=== PATIENT | female | born 1970 | race American Indian/Alaskan Native ===

== ENCOUNTER 2018-05-07 11:40 | Emergency (ER) | payer BC ==
[2018-05-07 12:10] VITALS: RESP 18; TEMP 98.4; O2SAT 100; BMI 34.9
[2018-05-07] MEDS ORDERED: Sodium Chloride 0.9% 1,000 ML IV STA (13:01)
--- NOTE | 2018-05-07 13:04 | ED PDOC ---
Arrival/HPI - General Chief Complaint: Pain, Chronic Time Seen by Provider: 05/07/18 13:00 Historian: Patient - History of Present Illness Narrative History of Present Illness (Text): 05/07/18 13:03 Patient is a 47 year old female whose past medical history includes arthritis, and sickle cell disease, who presents to the emergency department with her complaining of bilateral upper and lower extremity joint pain. Patient reports that her arthralgia started 3 days ago, which she has been treating with extra strength Tylenol and Motrin 600mg. The medications only provided intermittent relief before the pain would return. Of note the last time she took Tylenol and Motrin was last night. She mentions that her joint pain is worse in her left knee and radiates to her thigh. Currently, her joint isn't as severe. She notes that she had left sided chest pain, and denies any rash in the area. Patient denies currently having any chest pain. She has had similar joint pain in the past. Patient denies fevers, chills, cough, shortness of breath, chest pain, dyspnea on exertion, abdominal pain, nausea, vomiting, diarrhea, urinary/bowel changes, headache, dizziness, or any other complaint. Time/Duration: < week Symptom Onset: Sudden Symptom Course: Unchanged Context: Home Past Medical History - Provider Review Nursing Documentation Reviewed: Yes - Infectious Disease Hx of Infectious Diseases: None - Cardiac Hx Cardiac Disorders: No - Pulmonary Hx Respiratory Disorders: No - Neurological Hx Seizures: Yes - HEENT Hx HEENT Disorder: No - Renal Hx Renal Disorder: No - Endocrine/Metabolic Hx Endocrine Disorders: No - Hematological/Oncological Other/Comment: sickle cell - Integumentary Hx Dermatological Disorder: No - Musculoskeletal/Rheumatological Hx Musculoskeletal Disorders: No Hx Falls: No - Gastrointestinal Hx Gastrointestinal Disorders: No - Genitourinary/Gynecological Hx Genitourinary Disorders: No Other/Comment: c section - Psychiatric Hx Psychophysiologic Disorder: No Hx Substance Use: No - Surgical History Other/Comment: c section - Anesthesia Hx Anesthesia: Yes Hx Anesthesia Reactions: No Hx Malignant Hyperthermia: No Family/Social History - Physician Review Nursing Documentation Reviewed: Yes Family/Social History: No Known Family HX Smoking Status: Never Smoked Hx Alcohol Use: No Hx Substance Use: No Allergies/Home Meds Allergies/Adverse Reactions: Allergies shrimp Allergy (Verified 05/07/18 12:24) ANAPHYLAXIS Review of Systems - Physician Review All systems were reviewed & negative as marked: Yes - Review of Systems Constitutional: absent: Fevers, Night Sweats Respiratory: absent: SOB, Cough Cardiovascular: absent: Chest Pain, RICH Gastrointestinal: absent: Abdominal Pain, Diarrhea, Nausea, Vomiting Genitourinary Female: absent: Urine Output Changes Musculoskeletal: Arthralgias Skin: absent: Rash Neurological: absent: Headache, Dizziness Physical Exam Vital Signs Reviewed: Yes Vital Signs Temp Pulse Resp BP Pulse Ox 05/07/18 16:15 65 18 116/65 100 05/07/18 15:08 69 18 118/61 100 05/07/18 13:36 75 18 121/65 100 05/07/18 12:09 98.4 F 78 18 119/66 100 Temperature: Afebrile Blood Pressure: Normal Pulse: Regular Respiratory Rate: Normal Appearance: Positive for: Well-Appearing Mental Status: Positive for: Alert and Oriented X 3 - Systems Exam Head: Present: Atraumatic, Normocephalic Pupils: Present: PERRL Extroacular Muscles: Present: EOMI Conjunctiva: Present: Normal Mouth: Present: Moist Mucous Membranes Neck: Present: Normal Range of Motion Respiratory/Chest: Present: Clear to Auscultation, Good Air Exchange. No: Respiratory Distress, Accessory Muscle Use Cardiovascular: Present: Regular Rate and Rhythm, Normal S1, S2. No: Murmurs Abdomen: No: Tenderness, Distention, Peritoneal Signs Back: Present: Normal Inspection Upper Extremity: Present: Normal Inspection. No: Cyanosis, Edema Lower Extremity: Present: Normal Inspection. No: Edema Neurological: Present: GCS=15, CN II-XII Intact, Speech Normal Skin: Present: Warm, Dry, Normal Color. No: Rashes Psychiatric: Present: Alert, Oriented x 3, Normal Insight, Normal Concentration Medical Decision Making ED Course and Treatment: 05/07/18 13:03 Impression: Patient is a 47 year old female who is complaining of upper and lower extremity joint pain, which started 3 days ago. Plan: -- Labs -- Blood work -- Tylenol -- Toradol -- Chest X-ray -- IV fluids -- Reassess and disposition Prior Visits: Notes and results from previous visits were reviewed. Progress Notes: 05/07/18 16:09 patient feel much better and ready to go home. - Lab Interpretations Lab Results: 05/07/18 13:50 05/07/18 13:50 Lab Results 05/07/18 13:50: Sodium 143, Potassium 4.9, Chloride 107, Carbon Dioxide 28, Anion Gap 12, BUN 19, Creatinine 0.9, Est GFR ( Amer) > 60, Est GFR (Non- Af Amer) > 60, Random Glucose 97, Calcium 9.2, Total Bilirubin 0.7, AST 25, ALT 24, Alkaline Phosphatase 134 H, Total Protein 7.4, Albumin 4.2, Globulin 3.2, Albumin/Globulin Ratio 1.3 05/07/18 13:50: WBC 13.5 H D, RBC 4.81, Hgb 12.3, Hct 35.5 L, MCV 73.8 L, MCH 25.6, MCHC 34.6, RDW 17.4 H, Plt Count 278, MPV 8.4, Gran % 78.2 H, Lymph % ( Auto) 12.2 L, [place] % (Auto) 8.6 H, Eos % (Auto) 0.9 L, Baso % (Auto) 0.1, Gran # 10.54 H, Lymph # (Auto) 1.7, [place] # (Auto) 1.2 H, Eos # (Auto) 0.1, Baso # ( Auto) 0.01, Neutrophils % (Manual) 81 H, Lymphocytes % (Manual) 12 L, Monocytes % (Manual) 6, Eosinophils % (Manual) 1, Large Platelets Present, Polychromasia Slight, Hypochromasia Slight, Poikilocytosis (manual 2+, Anisocytosis (manual) 1 +, Microcytosis (manual) 1+, Target Cells 1+, Retic Count 3.48 H I have reviewed the lab results: Yes - RAD Interpretation Narrative RAD Interpretations (Text): 05/07/18 15:32 Chest X-ray: Creator : Venancio Aranda MD IMPRESSION: No active disease. Radiology Orders: 05/07/18 13:37 CXR [CHEST TWO VIEWS (PA/LAT)] [RAD] Stat Skin Former: Radiologist - EKG Interpretation EKG Interpretation (Text): 05/07/18 15:01 1443: nsr at 74 bpm, nml qrs, nml axis, no acute sttw abn Interpreted by ED Physician: Yes Type: 12 lead EKG - Medication Orders Current Medication Orders: Discontinued Medications Acetaminophen (Tylenol 325mg Tab) 975 mg PO STAT STA Stop: 05/07/18 13:02 Last Admin: 05/07/18 13:54 Dose: 975 mg MAR Pain/Vitals Document 05/07/18 13:54 HI (Rec: 05/07/18 13:54 [id number] Pain Reassessment Is This A Pain ReAssessment? No Sleep Is patient sleeping during reassessment? No Presence of Pain Presence of Pain Yes Location Pain Location Body Site Generalized Sodium Chloride (Sodium Chloride 0.9%) 1,000 mls @ 999 mls/hr IV .Q1H1M STA Stop: 05/07/18 14:01 Last Admin: 05/07/18 13:55 Dose: 999 mls/hr eMAR Start Stop Document 05/07/18 13:55 HI (Rec: 05/07/18 13:55 [id number] Intravenous Solution Start Date 05/07/18 Start Time 13:55 Ketorolac Tromethamine (Toradol) 30 mg IVP STAT STA Stop: 05/07/18 13:02 Last Admin: 05/07/18 13:54 Dose: 30 mg MAR Pain Assessment Document 05/07/18 13:54 HI (Rec: 05/07/18 13:54 [id number] Pain Reassessment Is this a pain reassessment? No Sleep Is patient sleeping during reassessment? No Presence of Pain Presence of Pain Yes Location Pain Location Body Site Generalized Description Description Sharp IVP Administration Document 05/07/18 13:54 HI (Rec: 05/07/18 13:54 [id number] Charges for Administration # of IVP Administrations 1 - Scribe Statement The provider has reviewed the documentation as recorded by the Radibshaun Paul Provider Scribe Attestation: All medical record entries made by the Scribe were at my direction and personally dictated by me. I have reviewed the chart and agree that the record accurately reflects my personal performance of the history, physical exam, medical decision making, and the department course for this patient. I have also personally directed, reviewed, and agree with the discharge instructions and disposition. Disposition/Present on Arrival - Present on Arrival Any Indicators Present on Arrival: No History of DVT/PE: No History of Uncontrolled Diabetes: No Urinary Catheter: No History of Decub. Ulcer: No History Surgical Site Infection Following: None - Disposition Have Diagnosis and Disposition been Completed?: Yes Diagnosis: Sickle cell anemia with pain Disposition: HOME/ ROUTINE Disposition Time: 16:10 Patient Plan: Discharge Patient Problems: Current Active Problems Problem Status Onset Sickle cell anemia with pain Acute Condition: IMPROVED Discharge Instructions (ExitCare): Sickle Cell Disease Additional Instructions: CHRISTINE RUIZ, thank you for letting us take care of you today. Your provider was Dr. Ricky Villalobos and you were treated for sickle cell pain. The emergency medical care you received today was directed at your acute symptoms. If you were prescribed any medication, please fill it and take as directed. It may take several days for your symptoms to resolve. Return to the Emergency Department if your symptoms worsen, do not improve, or if you have any other problems. Please contact your doctor or call one of the physicians/clinics you have been referred to that are listed on the Patient Visit Information form that is included in your discharge packet. Bring any paperwork you were given at discharge with you along with any medications you are taking to your follow up visit. Our treatment cannot replace ongoing medical care by a primary care provider outside of the emergency department. Thank you for allowing the [facility] team to be part of your care today. If you had an X-Ray or CT scan: A Radiologist will review the ED reading if any change in treatment is needed we will contact you. If you had a blood, urine, or wound culture: It will take several days for the results, if any change in treatment is needed we will contact you. If you had an STI test: It will take 48 hours for the results. Please call after 1 week if you have not heard back. Prescriptions: Ketorolac Tromethamine [Toradol] 10 mg PO Q6H 5 Days #20 tab Referrals: Amee Kebede MD [Primary Care Provider] - Follow up with primary Forms: [employer] (Mal[place]ian)
[2018-05-07 14:10] LABS: BASO # 0.01 K/mm3 (0.0-2.0); BASO % 0.1 % (0.0-3.0); EOS # 0.1 (0.0-0.7); EOS % 0.9 % (1.5-5.0); GRAN # 10.54 (1.4-6.5); GRAN % 78.2 % (50.0-68.0); HEMOGLOBIN 12.3 g/dL (12.0-16.0); LYMPH # 1.7 (1.2-3.4); LYMPH % 12.2 % (22.0-35.0); MEAN CELL VOLUME 73.8 fl (80.0-105.0); MEAN CORPUSCULAR HEMOGLOBIN 25.6 pg (25.0-35.0); MEAN CORPUSCULAR HGB CONC 34.6 g/dl (31.0-37.0); MEAN PLATELET VOLUME 8.4 fl (7.0-11.0); MONO # 1.2 (0.1-0.6); MONO % 8.6 % (1.0-6.0); PLATELET COUNT 278 10^3/uL (120.0-450.0); RBC 4.81 10^6/uL (3.5-6.1); RED CELL DISTRIBUTION WIDTH 17.4 % (11.5-14.5); WHITE BLOOD COUNT 13.5 10^3/ul (4.5-11.0)
[2018-05-07 14:19] LABS: ALB/GLOB RATIO 1.3 (1.1-1.8); ALBUMIN 4.2 g/dL (3.0-4.8); ALT/SGPT 24 U/L (7-56); AST/SGOT 25 U/L (14-36); BLOOD UREA NITROGEN 19 mg/dL (7-21); CALCIUM 9.2 mg/dL (8.4-10.5); GFR NON-AFRICAN AMERICAN > 60
[2018-05-07 14:53] LABS: EOSINOPHIL 1 % (0.0-3.0); LYMPHOCYTE 12 % (22.0-35.0); MONOCYTE 6 % (1.0-6.0); NEUTROPHIL 81 % (50.0-70.0)
[2018-05-07 14:54] LABS: HYPOCHROMIA SLIGHT; TARGET CELLS 1+
[2018-05-07 14:55] LABS: ANISOCYTOSIS 1+; MICROCYTOSIS 1+; POIKILOCYTOSIS 2+; POLYCHROMASIA SLIGHT
[2018-05-07 14:56] LABS: LARGE PLATELETS PRESENT
--- NOTE | 2018-05-07 15:24 | RAD ---
Date of service: 05/07/2018 HISTORY: left sided chest pain COMPARISON: No prior. TECHNIQUE: Chest PA and lateral FINDINGS: LUNGS: No active pulmonary disease. PLEURA: No significant pleural effusion identified. No pneumothorax apparent. CARDIOVASCULAR: Normal. OSSEOUS STRUCTURES: No significant abnormalities. VISUALIZED UPPER ABDOMEN: Normal. OTHER FINDINGS: None. IMPRESSION: No active disease.
[2018-05-07 16:21] VITALS: BP 116/65; PULSE 65
--- NOTE | 2018-05-07 22:18 | CARD ---
APPROVED REPORT Date of service: 05/07/2018 EKG Measurement Heart [id number] <Conclusion> Normal sinus rhythm Normal ECG
== END 2018-05-07 16:29 | disposition home or self-care (01) ==
LOC: ED 11:40
DX: D57.00 Hb-SS disease with crisis, unspecified (principal)
CPT/HCPCS: 71046; 80053; 85025; 85044; 93005; 96374; 99285; J1885; J7030